=== PATIENT | female | born 1970 | race Caucasian/White ===

== ENCOUNTER → 2017-12-21 09:31 | Outpatient (POV) | payer MEDICARE, SELFPAY ==
[2017-12-21 09:50] VITALS: BP 171/72; PULSE 92; RESP 18; O2SAT 98
--- NOTE | 2017-12-21 10:42 | HMH.PMCON ---
Assessment and Plan (1) CRPS (complex regional pain syndrome) Current visit: Yes Status: Chronic Qualifiers: Complex regional pain syndrome type: type I Complex regional pain syndrome affected site: lower extremity Laterality: left Qualified Code(s): G90.522 - Complex regional pain syndrome I of left lower limb Category: Medical - Assessment and plan all Dx Assessment and Plan for all problems:: We will see the patient on gabapentin 100 mg nightly. I will follow-up with the patient in 1 month and reassess her at that time. I also gave her information on a neurostimulator. Patient's been instructed to call the office if she has any issues prior to her next appointment. This note was dictated using voice recognition software and may contain errors or omissions HPI - Data of Consult Consult date: 12/21/17 Requesting Physician: Parris Roth APRN Primary Care Provider: Amy Finch Family Provider: Facundo Espinoza MD - Consult Narrative Reason for consult: Right foot pain History of present illness: Ms. Gruber is a 47 year old female presents today for consultation in regards to her foot pain. Patient was born with a clubfoot at . Patient had surgery to correct this. She is also had bone lengthening surgery. Patient has contracted osteomyelitis and has had several toes amputated. Patient has an open ulcer on her foot. And rates her pain today a 5 out of 10. Patient states the pain is burning and sharp at times. Patient's tried and failed [place], tramadol, Motrin. CC: Parris Roth APRN [facility] History I have reviewed the patient's past medical history: Yes Medical History: Reports:: Hypertension Other Surgeries: Yes: Other (PART OF R FOOT AMPUTATED) Amputation: Yes Fractures: No - *Social History Smoking Status: Current every day smoker Tobacco Type: cigarettes Alcohol Intake: never Occupational Status: other Housing: house - Psychiatric History Expresses thoughts of harming self/others: None Suicide Plan Description: No Plan *Family Hx:: Unable to obtain Review of Systems - Review of Systems ROS General: no recent weight change, no fever, no sleep disturbances Respiratory: no cough, no shortness of air, no recurring pulmonary infections Cardiovascular/Peripheral Vascular: No chest pain, No palpitations, no edema, no shortness of breath. Gastrointestinal: no incontinence, normal bowel movements reported Genitourinary: no incontinence Musculoskeletal: Right foot pain Psychiatric: normal mood/ affect Neurological: [denies weakness in extremities], [denies balance issues] Objective Vital signs: Pulse Resp BP Pulse Ox 92 H 18 171/72 H 98 12/21/17 09:50 12/21/17 09:50 12/21/17 09:50 12/21/17 09:50 Narrative: Physical Exam General: Alert and oriented x3, no acute distress, pleasant and cooperative, [on room air] Lungs: Resps E/U, Symmetrical chest expansion, Eyes: PERRL Musculoskeletal: Age of motion right foot somewhat guarded secondary to pain, deep tendon reflexes normal, strength in upper and lower extremities [5/5], [abnormal gait noted] Neurological: speech clear, grouter helper equal, no gross sensory deficits Opioid Risk Tool - Opioid Risk Tool-Female Family hx alcohol abuse: N Family hx illegal drugs: N Family hx rx drug abuse: N Personal hx alcohol abuse: N Personal hx illegal drugs: N Personal hx rx drug abuse: N Age: 45+ Hx of sexual abuse: N Mental health issues-ADD,OCD,Bipolar, etc: N Hx of depression: Y Female Risk Score: 1
--- NOTE | 2017-12-21 10:51 | P.CONS_ITS ---
Assessment and Plan (1) CRPS (complex regional pain syndrome) Current visit: Yes Status: Chronic Qualifiers: Complex regional pain syndrome type: type I Complex regional pain syndrome affected site: lower extremity Laterality: left Qualified Code(s): G90.522 - Complex regional pain syndrome I of left lower limb Category: Medical - Assessment and plan all Dx Assessment and Plan for all problems:: We will see the patient on gabapentin 100 mg nightly. I will follow-up with the patient in 1 month and reassess her at that time. I also gave her information on a neurostimulator. Patient's been instructed to call the office if she has any issues prior to her next appointment. This note was dictated using voice recognition software and may contain errors or omissions HPI - Data of Consult Consult date: 12/21/17 Requesting Physician: Parris Roth APRN Primary Care Provider: Amy Finch Family Provider: Facundo Espinoza MD - Consult Narrative Reason for consult: Right foot pain History of present illness: Ms. Gruber is a 47 year old female presents today for consultation in regards to her foot pain. Patient was born with a clubfoot at . Patient had surgery to correct this. She is also had bone lengthening surgery. Patient has contracted osteomyelitis and has had several toes amputated. Patient has an open ulcer on her foot. And rates her pain today a 5 out of 10. Patient states the pain is burning and sharp at times. Patient's tried and failed [place], tramadol, Motrin. CC: Parris Roth APRN [facility] History I have reviewed the patient's past medical history: Yes Medical History: Reports:: Hypertension Other Surgeries: Yes: Other (PART OF R FOOT AMPUTATED) Amputation: Yes Fractures: No - *Social History Smoking Status: Current every day smoker Tobacco Type: cigarettes Alcohol Intake: never Occupational Status: other Housing: house - Psychiatric History Expresses thoughts of harming self/others: None Suicide Plan Description: No Plan *Family Hx:: Unable to obtain Review of Systems - Review of Systems ROS General: no recent weight change, no fever, no sleep disturbances Respiratory: no cough, no shortness of air, no recurring pulmonary infections Cardiovascular/Peripheral Vascular: No chest pain, No palpitations, no edema, no shortness of breath. Gastrointestinal: no incontinence, normal bowel movements reported Genitourinary: no incontinence Musculoskeletal: Right foot pain Psychiatric: normal mood/ affect Neurological: [denies weakness in extremities], [denies balance issues] Objective Vital signs: Pulse Resp BP Pulse Ox 92 H 18 171/72 H 98 12/21/17 09:50 12/21/17 09:50 12/21/17 09:50 12/21/17 09:50 Narrative: Physical Exam General: Alert and oriented x3, no acute distress, pleasant and cooperative, [on room air] Lungs: Resps E/U, Symmetrical chest expansion, Eyes: PERRL Musculoskeletal: Age of motion right foot somewhat guarded secondary to pain, deep tendon reflexes normal, strength in upper and lower extremities [5/5], [abnormal gait noted] Neurological: speech clear, garden consultant equal, no gross sensory deficits Opioid Risk Tool - Opioid Risk Tool-Female Family hx alcohol abuse: N Family hx illegal drugs: N Family hx rx drug abuse: N Personal hx alcohol abuse: N
== END ==
PROVIDERS: Family Provider Obstetrics & Gynecology; PCP Family Medicine; Visit Provider Clinical Nurse Specialist Family Health
DX: G90.522 Complex regional pain syndrome I of left lower limb (principal)
CPT/HCPCS: 99202

== ENCOUNTER → 2018-01-10 13:22 | Outpatient (POV) | payer MEDICARE, SELFPAY ==
[2018-01-10 13:59] VITALS: BP 148/90; PULSE 102; RESP 18; O2SAT 98; BMI 19.5
[2018-01-10 15:46] LABS: Amphetamine/Metha Screen,Urine Negative ng/mL (<1000); Barbiturates Screen,Urine Negative ng/mL (<200); Benzodiazepines Screen,Urine Negative ng/mL (<200); Cannabinoid Screen,Urine Negative ng/mL (<50); Cocaine Screen,Urine Negative ng/mL (<300); Methadone Screen,Urine Negative ng/mL (<300); Opiate Screen,Urine Negative ng/mL (<300); Phencyclidine Screen,Urine Negative ng/mL (<25)
--- NOTE | 2018-01-11 08:13 | HMH.PAINSOAP ---
[facility] Pain Management SOAP Note Subjective:: Patient is a pleasant 47-year-old white female who presents today for dilatation in regards to her foot pain. 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 Patient had multiple surgeries to correct this. She also had a bone lengthening surgery. Patient had contracted osteomyelitis at that time. She had had several toes amputated. Patient has an open ulcer on her foot that she has difficulty with healing. Patient rates her pain 5 out of 10. Patient states that it is burning and sharp at times. Patient has tried multiple modalities of treatment. ROS General: no recent weight change, no fever, no sleep disturbances Respiratory: no cough, no shortness of air, no recurring pulmonary infections Cardiovascular/Peripheral Vascular: No chest pain, No palpitations, no edema, no shortness of breath. Gastrointestinal: no incontinence, normal bowel movements reported Genitourinary: no incontinence Musculoskeletal: Foot pain Psychiatric: normal mood/ affect Neurological: [denies weakness in extremities], [denies balance issues] Objective:: Physical Exam General: Alert and oriented x3, no acute distress, pleasant and cooperative, [on room air] Lungs: Resps E/U, Symmetrical chest expansion, Eyes: PERRL Musculoskeletal: Range of motion right foot somewhat guarded secondary to pain, noted ulcer on right foot, deep tendon reflexes normal, strength in upper and lower extremities [5/5], [abnormal gait noted] Neurological: speech clear, tubing supervisor equal, no gross sensory deficits Assessment:: CRPS type I right foot Plan:: Patient did not have any relief with gabapentin. Patient has had an appropriate drug screen. We will start her on [place] and 1 p.o. 3 times daily. This will be only until we get her approved for a stimulator trial. Patient will have to be cleared by the physician taking care of her also that she is off antibiotics and able to have the trial. Patient is also going to follow-up after her psychological evaluation. Patient has been prescribed a controlled substance after being counseled on the medication, medication safety, and possible side effects. MO report has been obtained and reviewed prior to prescription and found to be appropriate. Opioid contract was reviewed and signed by the patient, and that they have agreed to all of the terms set forth by our compliance program. This note was dictated using voice recognition software and may contain errors or omissions
--- NOTE | 2018-01-11 08:16 | P.CONS_ITS ---
[facility] Pain Management SOAP Note Subjective:: Patient is a pleasant 47-year-old white female who presents today for dilatation in regards to her foot pain. 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 Patient had multiple surgeries to correct this. She also had a bone lengthening surgery. Patient had contracted osteomyelitis at that time. She had had several toes amputated. Patient has an open ulcer on her foot that she has difficulty with healing. Patient rates her pain 5 out of 10. Patient states that it is burning and sharp at times. Patient has tried multiple modalities of treatment. ROS General: no recent weight change, no fever, no sleep disturbances Respiratory: no cough, no shortness of air, no recurring pulmonary infections Cardiovascular/Peripheral Vascular: No chest pain, No palpitations, no edema, no shortness of breath. Gastrointestinal: no incontinence, normal bowel movements reported Genitourinary: no incontinence Musculoskeletal: Foot pain Psychiatric: normal mood/ affect Neurological: [denies weakness in extremities], [denies balance issues] Objective:: Physical Exam General: Alert and oriented x3, no acute distress, pleasant and cooperative, [on room air] Lungs: Resps E/U, Symmetrical chest expansion, Eyes: PERRL Musculoskeletal: Range of motion right foot somewhat guarded secondary to pain, noted ulcer on right foot, deep tendon reflexes normal, strength in upper and lower extremities [5/5], [abnormal gait noted] Neurological: speech clear, associate juvenile court judge equal, no gross sensory deficits Assessment:: CRPS type I right foot Plan:: Patient did not have any relief with gabapentin. Patient has had an appropriate drug screen. We will start her on [place] and 1 p.o. 3 times daily. This will be only until we get her approved for a stimulator trial. Patient will have to be cleared by the physician taking care of her also that she is off antibiotics and able to have the trial. Patient is also going to follow-up after her psychological evaluation. Patient has been prescribed a controlled substance after being counseled on the medication, medication safety, and possible side effects. MO report has been obtained and reviewed prior to prescription and found to be appropriate. Opioid contract was reviewed and signed by the patient, and that they have agreed to all of the terms set forth by our compliance program. This note was dictated using voice recognition software and may contain errors or omissions
== END ==
PROVIDERS: PCP Family Medicine; Visit Provider Clinical Nurse Specialist Family Health
DX: G90.521 Complex regional pain syndrome I of right lower limb (principal); Z79.899 Other long term (current) drug therapy
CPT/HCPCS: 80305; 99213

== ENCOUNTER → 2018-01-31 09:12 | Outpatient (POV) | payer MEDICARE, SELFPAY ==
[2018-01-31 09:23] VITALS: BP 155/94; PULSE 74; RESP 18; O2SAT 98
--- NOTE | 2018-01-31 09:38 | P.CONS_ITS ---
[facility] Pain Management SOAP Note Subjective:: Is a very pleasant 47-year-old white female who presents today for a follow-up after her psychological evaluation. 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 Patient has had multiple surgeries to correct this. She is also had bone lengthening surgery. Patient does have a nonhealing ulcer on her right foot. Patient does take antibiotics at times however at this time she is not on any antibiotics and does not have a current infection. Patient is not on any anticoagulant therapy. She rates her pain a 6 out of 10. Patient and I have discussed in length about spinal cord stimulation. I have also discussed this with Dr. Rae. Dr. Rae felt that they would be appropriate to move forward with this as long as she is off her antibiotics. We will put her on antibiotics during her trial. Patient psychological evaluation considers her a good candidate for an implantable spinal cord stimulator. Patient does have some depression however she is on the correct medicine for this. ROS General: no recent weight change, no fever, no sleep disturbances Respiratory: no cough, no shortness of air, no recurring pulmonary infections Cardiovascular/Peripheral Vascular: No chest pain, No palpitations, no edema, no shortness of breath. Gastrointestinal: no incontinence, normal bowel movements reported Genitourinary: no incontinence Musculoskeletal: Right foot and leg pain Psychiatric: normal mood/ affect Neurological: [denies weakness in extremities], [denies balance issues] Objective:: Physical Exam General: Alert and oriented x3, no acute distress, pleasant and cooperative, [on room air] Lungs: Resps E/U, Symmetrical chest expansion, Eyes: PERRL Musculoskeletal: Range of Motion of the right foot guarded secondary pain. Flexion and extension of lumbar spine somewhat guarded secondary to pain, deep tendon reflexes normal, strength in upper and lower extremities [5/5], [abnormal gait noted] Neurological: speech clear, mba intern equal, no gross sensory deficits Assessment:: CRPS type I right foot, leg pain, back pain. Plan:: Patient has not had relief with gabapentin. Patient has been off of her antibiotics and is able to move forward with her trial. We will plan on putting the leads for both back pain and her right leg and right foot pain. I will follow-up with her after her trial. I answered all of her questions. Patient is a good candidate according to her psychological evaluation. This note was dictated using voice recognition software and may contain errors or omissions
== END ==
PROVIDERS: PCP Family Medicine; Visit Provider Clinical Nurse Specialist Family Health
DX: G90.521 Complex regional pain syndrome I of right lower limb; M54.9 Dorsalgia, unspecified
CPT/HCPCS: 99213

== ENCOUNTER → 2018-02-08 09:24 | Outpatient (POV) | payer MEDICARE, SELFPAY ==
[2018-02-08 09:37] VITALS: BP 141/85; PULSE 89; RESP 18; O2SAT 98
--- NOTE | 2018-02-08 11:03 | P.PCN_ITS ---
- Procedure Date: 02/08/18 Time: 09:40 Anesthesiologist:: Parris Roth APRN Complications:: None Pre-procedure Diagnosis:: CRPS type I of the right lower extremity with degenerative disc disease lumbar spine lumbar radiculopathy symptoms Post-procedure Diagnosis:: Same Indications for Procedure:: Patient is a pleasant 47-year-old white female who presents today for follow-up and lead removal for her neurostimulator. She was born with clubfoot on the right side and has had multiple surgeries to correct this is including bone lengthening surgery. She is failed other conservative measures of therapy including injections, oral medications, physical therapy and surgery. Most of her pain is in her right foot with additional pain in her hips and right leg. Patient states she did not get any relief from the spinal cord stimulator trial. We will renew those leads today. She rates her pain a 9 out of 10 today. Physical Exam General: Alert and oriented x3, no acute distress, pleasant and cooperative, [on room air] Lungs: Resps E/U, Symmetrical chest expansion, Eyes: PERRL Musculoskeletal: Flexion and extension of lumbar spine somewhat guarded secondary to pain, deep tendon reflexes normal, strength in upper and lower extremities [5/5], [abnormal gait noted] Neurological: speech clear, electrical electronics engineers equal, no gross sensory deficits Procedure Details:: After informed consent was obtained the risk and benefits of the procedure were explained to the patient. Patient's vital signs were monitored with noninvasive blood pressure cuff and pulse oximeter. Patient's tape was removed on her back. The area in which her epidural leads entered was examined to ensure no redness or draining. Patient leads were then removed in sterile fashion. Patient then had Band-Aids placed over the puncture sites. Patient tolerated the procedure well. Plan and Disposition:: Patient and I had a lengthy discussion in regards to an intrathecal pain pump. Patient is on [place] 10 1 p.o. 3 times daily. Patient and I discussed that we would not be able to continue this medication. Patient states she understands. Patient took information in regards to a intrathecal pain pump and is going to review this. If she wants to move forward with this we will set her up for a trial. Patient was given 1 month of [place] 10 mg 1 p.o. 3 times daily. Patient's understands that this will be the last month of medication she receives from us. This note was dictated using voice recognition software and may contain errors or omissions
== END ==
PROVIDERS: PCP Family Medicine; Visit Provider Clinical Nurse Specialist Family Health
DX: M51.16 Intervertebral disc disorders with radiculopathy, lumbar region (principal); G90.521 Complex regional pain syndrome I of right lower limb
CPT/HCPCS: 99212

== ENCOUNTER → 2018-03-07 10:30 | Outpatient (POV) | payer MEDICARE, SELFPAY ==
[2018-03-07 11:09] VITALS: BP 135/94; PULSE 95; RESP 18; O2SAT 98; BMI 19.4
--- NOTE | 2018-03-07 11:51 | HMH.PAINSOAP ---
[facility] Pain Management SOAP Note Subjective:: Patient is a pleasant 47-year-old white female who presents today for follow-up. Patient has been thinking about intrathecal pain pump however due to recent life events I do not believe it is appropriate at this time. She also has an active infection. Patient is currently on [place] 10 mg 1 p.o. 3 times daily. She does state that this is beneficial. MO #[id number] reviewed and appropriate. ROS General: no recent weight change, no fever, no sleep disturbances Respiratory: no cough, no shortness of air, no recurring pulmonary infections Cardiovascular/Peripheral Vascular: No chest pain, No palpitations, no edema, no shortness of breath. Gastrointestinal: no incontinence, normal bowel movements reported Genitourinary: no incontinence Musculoskeletal: Foot pain Psychiatric: Tearful and anxious Neurological: [denies weakness in extremities], [denies balance issues] Objective:: Physical Exam General: Alert and oriented x3, no acute distress, pleasant and cooperative, [on room air] Lungs: Resps E/U, Symmetrical chest expansion, Eyes: PERRL Musculoskeletal: Flexion and extension right foot guarded secondary to pain, deep tendon reflexes normal, strength in upper and lower extremities [5/5], [abnormal gait noted] Neurological: speech clear, road gang supervisor equal, no gross sensory deficits Assessment:: CRPS type I right lower extremity with degenerative disc disease lumbar spine with lumbar radiculopathy Plan:: We will refill her [place] 10 mg 1 p.o. 3 times daily and see her back in 2 months and reassess her symptoms at that time. Patient has been prescribed a controlled substance after being counseled on the medication, medication safety, and possible side effects. MO report has been obtained and reviewed prior to prescription and found to be appropriate. Opioid contract was reviewed and signed by the patient, and that they have agreed to all of the terms set forth by our compliance program. This note was dictated using voice recognition software and may contain errors or omissions
--- NOTE | 2018-03-07 11:55 | P.CONS_ITS ---
[facility] Pain Management SOAP Note Subjective:: Patient is a pleasant 47-year-old white female who presents today for follow-up. Patient has been thinking about intrathecal pain pump however due to recent life events I do not believe it is appropriate at this time. She also has an active infection. Patient is currently on [place] 10 mg 1 p.o. 3 times daily. She does state that this is beneficial. MO #[id number] reviewed and appropriate. ROS General: no recent weight change, no fever, no sleep disturbances Respiratory: no cough, no shortness of air, no recurring pulmonary infections Cardiovascular/Peripheral Vascular: No chest pain, No palpitations, no edema, no shortness of breath. Gastrointestinal: no incontinence, normal bowel movements reported Genitourinary: no incontinence Musculoskeletal: Foot pain Psychiatric: Tearful and anxious Neurological: [denies weakness in extremities], [denies balance issues] Objective:: Physical Exam General: Alert and oriented x3, no acute distress, pleasant and cooperative, [on room air] Lungs: Resps E/U, Symmetrical chest expansion, Eyes: PERRL Musculoskeletal: Flexion and extension right foot guarded secondary to pain, deep tendon reflexes normal, strength in upper and lower extremities [5/5], [abnormal gait noted] Neurological: speech clear, feller machine operator equal, no gross sensory deficits Assessment:: CRPS type I right lower extremity with degenerative disc disease lumbar spine with lumbar radiculopathy Plan:: We will refill her [place] 10 mg 1 p.o. 3 times daily and see her back in 2 months and reassess her symptoms at that time. Patient has been prescribed a controlled substance after being counseled on the medication, medication safety, and possible side effects. MO report has been obtained and reviewed prior to prescription and found to be appropriate. Opioid contract was reviewed and signed by the patient, and that they have agreed to all of the terms set forth by our compliance program. This note was dictated using voice recognition software and may contain errors or omissions
== END ==
PROVIDERS: PCP Family Medicine; Visit Provider Clinical Nurse Specialist Family Health
DX: G90.521 Complex regional pain syndrome I of right lower limb (principal); M51.16 Intervertebral disc disorders with radiculopathy, lumbar region
CPT/HCPCS: 99213

== ENCOUNTER → 2018-05-02 10:41 | Outpatient (POV) | payer MEDICARE, SELFPAY ==
[2018-05-02 10:56] VITALS: BP 158/89; PULSE 94; RESP 18; O2SAT 98; BMI 18.8
--- NOTE | 2018-05-02 11:29 | HMH.PAINSOAP ---
[facility] Pain Management SOAP Note Subjective:: Patient is a pleasant 47-year-old white female who presents today for follow-up. Patient currently being medically managed with [place] 10 mg 1 p.o. 3 times a day. She suffers from chronic wounds on her right lower extremity. Patient has not seen a railroad car letterer recently. We will send her to Dr. Varner. She rates her pain today a 7 out of 10. Mo reviewed and appropriate. We will send the patient for urine drug screen today. ROS General: no recent weight change, no fever, no sleep disturbances Respiratory: no cough, no shortness of air, no recurring pulmonary infections Cardiovascular/Peripheral Vascular: No chest pain, No palpitations, no edema, no shortness of breath. Gastrointestinal: no incontinence, normal bowel movements reported Genitourinary: no incontinence Musculoskeletal: Right foot pain Psychiatric: normal mood/ affect Neurological: Weakness in right lower extremity, [denies balance issues] Objective:: Physical Exam General: Alert and oriented x3, no acute distress, pleasant and cooperative, [on room air] Lungs: Resps E/U, Symmetrical chest expansion, Eyes: PERRL Musculoskeletal: Range of motion right lower extremity somewhat guarded secondary to pain, deep tendon reflexes normal, strength in upper extremities [5/5], [abnormal gait noted] Neurological: speech clear, sales and merchandising associate equal, no gross sensory deficits Assessment:: 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 Varner for an evaluation of her right foot. We will also refill her [place] 10 mg 1 p.o. 3 times daily and give her 2 months worth of medication. We will send her for urine drug screen today. Patient denies side effects or medication. I will follow-up with the patient in 3 months and in the interim she can cook pickled meat a prescription if her urine drug screen is appropriate. Patient has been prescribed a controlled substance after being counseled on the medication, medication safety, and possible side effects. MO report has been obtained and reviewed prior to prescription and found to be appropriate. Opioid contract was reviewed and signed by the patient, and that they have agreed to all of the terms set forth by our compliance program. Dr. Rae has reviewed this note and agrees with this plan of care. This note was dictated using voice recognition software and may contain errors or omissions
--- NOTE | 2018-05-02 11:32 | P.CONS_ITS ---
[facility] Pain Management SOAP Note Subjective:: Patient is a pleasant 47-year-old white female who presents today for follow-up. Patient currently being medically managed with [place] 10 mg 1 p.o. 3 times a day. She suffers from chronic wounds on her right lower extremity. Patient has not seen a transfusion nurse recently. We will send her to Dr. Varner. She rates her pain today a 7 out of 10. Mo reviewed and appropriate. We will send the patient for urine drug screen today. ROS General: no recent weight change, no fever, no sleep disturbances Respiratory: no cough, no shortness of air, no recurring pulmonary infections Cardiovascular/Peripheral Vascular: No chest pain, No palpitations, no edema, no shortness of breath. Gastrointestinal: no incontinence, normal bowel movements reported Genitourinary: no incontinence Musculoskeletal: Right foot pain Psychiatric: normal mood/ affect Neurological: Weakness in right lower extremity, [denies balance issues] Objective:: Physical Exam General: Alert and oriented x3, no acute distress, pleasant and cooperative, [on room air] Lungs: Resps E/U, Symmetrical chest expansion, Eyes: PERRL Musculoskeletal: Range of motion right lower extremity somewhat guarded secondary to pain, deep tendon reflexes normal, strength in upper extremities [5/5], [abnormal gait noted] Neurological: speech clear, interlocking and signal mechanic equal, no gross sensory deficits Assessment:: 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 Varner for an evaluation of her right foot. We will also refill her Helotes 10 mg 1 p.o. 3 times daily and give her 2 months worth of medication. We will send her for urine drug screen today. Patient denies side effects or medication. I will follow-up with the patient in 3 months and in the interim she can machine operator hop picker a prescription if her urine drug screen is appropriate. Patient has been prescribed a controlled substance after being counseled on the medication, medication safety, and possible side effects. MO report has been obtained and reviewed prior to prescription and found to be appropriate. Opioid contract was reviewed and signed by the patient, and that they have agreed to all of the terms set forth by our compliance program. Dr. Rae has reviewed this note and agrees with this plan of care. This note was dictated using voice recognition software and may contain errors or omissions
[2018-05-02 14:08] LABS: Amphetamine/Metha Screen,Urine Negative ng/mL (<1000); Barbiturates Screen,Urine Negative ng/mL (<200); Benzodiazepines Screen,Urine Negative ng/mL (<200); Cannabinoid Screen,Urine Negative ng/mL (<50); Cocaine Screen,Urine Negative ng/mL (<300); Methadone Screen,Urine Negative ng/mL (<300); Opiate Screen,Urine Positive ng/mL (<300); Phencyclidine Screen,Urine Negative ng/mL (<25)
[2018-05-08 15:07] LABS: Codeine Negative (Cutoff=100); Hydrocodone Positive (.); Hydromorphone Positive (.); Morphine Negative (Cutoff=100)
[2018-05-09 13:24] LABS: Opiates Positive (.)
== END ==
PROVIDERS: PCP Family Medicine; Visit Provider Clinical Nurse Specialist Family Health
DX: Z79.899 Other long term (current) drug therapy (principal); G90.521 Complex regional pain syndrome I of right lower limb; M51.16 Intervertebral disc disorders with radiculopathy, lumbar region
CPT/HCPCS: 80305; 80361; 80365; 99213; G0480

== ENCOUNTER → 2018-05-12 10:57 | Outpatient (CLI) | payer MEDICARE, SELFPAY ==
--- NOTE | 2018-05-12 11:02 | XR_ITS ---
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 These appear to be multiple punched-out lucent area seen at the remaining bone towards the distal stump-compatible with the the s history of chronic osteomyelitis. Specifically note small punched out areas at distal margin cuboid on the oblique view of the foot with similar round lucent areas at the cuneiform bones, with irregular margin bone throughout this entire region at the distal stump. There appear to be an deep ulcer at the plantar aspect of foot, leading to the irregular bone here at distal stump described above.. Correlation clinically required. Also Curiously note what appears to be distal tuft of questionable great toe fragment (vs a dystrophic bone fragment). Make it unclear as to the pattern of amputation or severe erosive changes throughout the foot thus requires correlation.. RIGHT ANKLE There is diffuse demineralization at right foot and ankle. There is marked narrowing of the ankle joint [id number] appearance throughout. Possible, partial fusion at the subtalar joint. Fixation screw entering laterally and distal fibula metaphysis, and passing into the tibia providing fixation to the distal fibular next tibial articulation & distal interosseous joint. There is some multiple areas of minimal thin osseous bridgingdistal third of tibia and fibula at the interosseous ligament. . Only the Inferior margin of metallic plate mid tibia included reflecting more extensive ORIF of tibia proximal to this.. There are scattered small lucent areas elsewhere the distal tibia is seen on the lateral view either reflecting post surgical tracts or related to the other features.. Prior studies would be helpful to determine if these are long-standing. No prior studies here . Also note the regular cortex at the lateral aspect of distal fibula. IMPRESSION: 1. Right foot Amputation at the mid foot. There is a deep plantar ulcer at the stump-associated with irregular osseous margin at the osseous stump. Multiple erosive changes and osseous irregularity here reflect history of osteomyelitis/chronic osteomyelitis. 2. Right ankle. Markedly narrowed joint. ... Postsurgical changes lower leg-with Screw from previous fibular/tibial interosseous fixation. . 3..Note Irregular ill-defined appearing cortex along lateral margin of fibula shaft upper margin of ankle study. Consider right lower leg to further evaluate.- Currently cannot exclude active process in this area as well. However Could be reflection of old healed osteomyelitis or injury Outside prior films may be of benefit for comparison as well
--- NOTE | 2018-05-12 11:02 | XR_ITS ---
XR ankle wt bearing LT min 3V, XR foot wt bearing LT 3V Ordering Physician: Janet Varner DPM Patient Age: 47 years: Female HISTORY: Foot. Pain Right foot drainage chronic osteomyelitis at right foot.. Left foot pain TECHNIQUE: Left ankle: 3 view. Weightbearing Left foot: 3 view weightbearing COMPARISON :None ===== LEFT FOOT 3 view weightbearing . There is cortical thickening at the distal shaft of second metatarsal. This could reflect a old healed fracture or conceivably could reflect currently healing fracture or stress fracture if pain here currently.. The remainder the foot appears intact. The other metatarsals Metatarsal 1, 3 ,4 , 5 appear intact & otherwise unremarkable. The toes appear intact. Bones well mineralized on the left foot. No Erosive changes on the left foot. ===== LEFT ANKLE 3 views weightbearing . Left ankle appears intact. Ankle mortise well maintained joint space well maintained. Medial, lateral and posterior malleolus intact. Dome of talus intact. Subtalar region unremarkable on plain film. Calcaneus satisfactory --------IMPRESSION: LEFT FOOT-Cortical thickening at distal shaft second metatarsal-suggestive of healed fracture, or possibly healing fracture. Correlation required. LEFT ANKLE:- Negative. Intact. & Unremarkable.
== END ==
PROVIDERS: PCP Family Medicine; Visit Provider Podiatrist
DX: Z51.89 Encounter for other specified aftercare (principal)
CPT/HCPCS: 73610; 73630

== ENCOUNTER → 2018-07-25 10:14 | Outpatient (POV) | payer MEDICARE, SELFPAY ==
[2018-07-25 10:29] VITALS: BP 170/82; PULSE 76; RESP 18; O2SAT 98; BMI 19.5
--- NOTE | 2018-07-25 10:42 | HMH.PAINSOAP ---
[facility] Pain Management SOAP Note Subjective:: Patient is a pleasant 47-year-old white female who presents today for follow-up. She currently rates her pain a 3 out of 10. She is being medically managed with [place] 10 mg 1 p.o. 3 times daily. She suffers from chronic wounds on her right lower extremity. 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 Patient states her medication helps her up to 80%. She is walking without a crutch today. Urine drug screens have been appropriate Mo reviewed and appropriate. Patient states she does have some dental work coming up. Patient will have the dentist contact our office. ROS General: no recent weight change, no fever, no sleep disturbances Respiratory: no cough, no shortness of air, no recurring pulmonary infections Cardiovascular/Peripheral Vascular: No chest pain, No palpitations, no edema, no shortness of breath. Gastrointestinal: no incontinence, normal bowel movements reported Genitourinary: no incontinence Musculoskeletal: Right foot pain Psychiatric: normal mood/ affect Neurological: [denies weakness in extremities], [denies balance issues] Objective:: Physical Exam General: Alert and oriented x3, no acute distress, pleasant and cooperative, [on room air] Lungs: Resps E/U, Symmetrical chest expansion, Eyes: PERRL Musculoskeletal: Range of motion right lower extremity somewhat guarded secondary to pain, deep tendon reflexes normal, strength in upper and lower extremities [5/5], [abnormal gait noted] Neurological: speech clear, curer acid drum equal, no gross sensory deficits Assessment:: 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 3 times daily give her 2 months with medication we will send her for urine drug screen today. Should be withheld for her to help monitor compliance.Follow-up with her in 3 months reassess her symptoms at that time she will be given a 3-month roller picker prescription in the interim. Patient has been prescribed a controlled substance after being counseled on the medication, medication safety, and possible side effects. MO report has been obtained and reviewed prior to prescription and found to be appropriate. Opioid contract was reviewed and signed by the patient, and that they have agreed to all of the terms set forth by our compliance program. Dr. Rae has reviewed this note and agrees with this plan of care. This note was dictated using voice recognition software and may contain errors or omissions
--- NOTE | 2018-07-25 10:45 | P.CONS_ITS ---
[facility] Pain Management SOAP Note Subjective:: Patient is a pleasant 47-year-old white female who presents today for follow-up. She currently rates her pain a 3 out of 10. She is being medically managed with [place] 10 mg 1 p.o. 3 times daily. She suffers from chronic wounds on her right lower extremity. 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 Patient states her medication helps her up to 80%. She is walking without a crutch today. Urine drug screens have been appropriate Mo reviewed and appropriate. Patient states she does have some dental work coming up. Patient will have the dentist contact our office. ROS General: no recent weight change, no fever, no sleep disturbances Respiratory: no cough, no shortness of air, no recurring pulmonary infections Cardiovascular/Peripheral Vascular: No chest pain, No palpitations, no edema, no shortness of breath. Gastrointestinal: no incontinence, normal bowel movements reported Genitourinary: no incontinence Musculoskeletal: Right foot pain Psychiatric: normal mood/ affect Neurological: [denies weakness in extremities], [denies balance issues] Objective:: Physical Exam General: Alert and oriented x3, no acute distress, pleasant and cooperative, [on room air] Lungs: Resps E/U, Symmetrical chest expansion, Eyes: PERRL Musculoskeletal: Range of motion right lower extremity somewhat guarded secondary to pain, deep tendon reflexes normal, strength in upper and lower extremities [5/5], [abnormal gait noted] Neurological: speech clear, tank assembler equal, no gross sensory deficits Assessment:: 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 3 times daily give her 2 months with medication we will send her for urine drug screen today. Should be withheld for her to help monitor compliance.Follow-up with her in 3 months reassess her symptoms at that time she will be given a 3-month cherry picker operator prescription in the interim. Patient has been prescribed a controlled substance after being counseled on the medication, medication safety, and possible side effects. MO report has been obtained and reviewed prior to prescription and found to be appropriate. Opioid contract was reviewed and signed by the patient, and that they have agreed to all of the terms set forth by our compliance program. Dr. Rae has reviewed this note and agrees with this plan of care. This note was dictated using voice recognition software and may contain errors or omissions
[2018-07-25 18:12] LABS: Amphetamine/Metha Screen,Urine Negative ng/mL (<1000); Barbiturates Screen,Urine Negative ng/mL (<200); Benzodiazepines Screen,Urine Negative ng/mL (<200); Cannabinoid Screen,Urine Negative ng/mL (<50); Cocaine Screen,Urine Negative ng/mL (<300); Methadone Screen,Urine Negative ng/mL (<300); Opiate Screen,Urine Positive ng/mL (<300); Phencyclidine Screen,Urine Negative ng/mL (<25)
[2018-07-31 14:09] LABS: Codeine Negative (Cutoff=100); Hydrocodone Positive (.); Hydromorphone Positive (.); Morphine Negative (Cutoff=100)
[2018-07-31 17:25] LABS: Opiates Positive (.)
== END ==
PROVIDERS: PCP Family Medicine; Visit Provider Clinical Nurse Specialist Family Health
DX: M51.16 Intervertebral disc disorders with radiculopathy, lumbar region (principal); Z79.899 Other long term (current) drug therapy
CPT/HCPCS: 80305; 80361; 80365; 99212; G0480

== ENCOUNTER → 2018-09-13 11:03 | Outpatient (POV) | payer MEDICARE, SELFPAY ==
[2018-09-13 11:51] VITALS: BP 149/49; PULSE 74; RESP 18; O2SAT 98; BMI 18.4
--- NOTE | 2018-09-13 13:15 | HMH.PAINSOAP ---
[facility] Pain Management SOAP Note Subjective:: Patient is a 47-year-old white female who presents today for complaints of pain to her right leg radiating into her right foot. 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 Patient says that she started to have right hip and right buttock pain radiating into her right leg a couple of weeks ago. The patient went to see her primary care provider who gave her a right SI joint injection for which she reports she did get relief to her right buttock and right hip, with 80% relief. Since then, however, she has started having pain behind her right knee into her foot. The patient says that she has a pocket of skin on her foot that she cut off herself and is currently being treated for infection to that area. She feels that this may also be contributing to her pain. She says that her pain medication that she is currently taking is no longer effective. She rates her pain a 7 out of 10 today. Patient is currently taking [place] 10 mg 1 p.o. 3 times daily. Patient states I want something stronger because [place] is no longer working for me . Review of Systems General: No recent weight changes, no fever, no sleep disturbances Respiratory: No cough, no shortness of air, no recurring pulmonary infections Cardiovascular/peripheral vascular: No chest pain, no palpitations, no edema, no shortness of breath Gastrointestinal: No new onset incontinence, normal bowel movements reported Genitourinary: No new onset incontinence Musculoskeletal: Right leg pain Psychiatric: Normal mood/affect Neurological: [Denies weakness in extremities], [denies balance issues] Objective:: Physical exam General: Alert and oriented x3, no acute distress, pleasant and cooperative, [on room air] Lungs: Respirations even and unlabored, symmetrical chest expansion Eyes: PERRL Musculoskeletal: Flexion and extension of right leg somewhat guarded secondary to pain, deep tendon reflexes normal, strength in upper and lower extremities [5/5], [abnormal gait noted] Neurological: Speech clear, net software engineer equal, no gross sensory deficit Assessment:: 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 She is not interested in any type of injective therapy. The patient also says that she tried a spinal cord stimulator trial in the past and did not get relief. We had a thorough discussion that we will be unable to increase her oral medication regimen at this time. We did discuss the option of other medications that were not opiates, for which she is not interested at this point. Patient says I am going to have to have stronger medicine . We did discuss that we have limited options at this point, as she is not interested in any further treatments that we can offer. The patient would like to continue her [place] 10 mg 1 p.o. 3 times daily. Her Prakash has been reviewed and is appropriate. We will see the patient back for her scheduled medication refill appointment. She has been instructed to call the office if she has any concerns prior to that appointment, or if she changes her mind regarding other treatment options. Dr. Rae has reviewed this note and agrees with this plan of care. This note was dictated using voice recognition software and make contain errors or omissions.
== END ==
PROVIDERS: PCP Family Medicine; Visit Provider Clinical Nurse Specialist Family Health
DX: M46.1 Sacroiliitis, not elsewhere classified (principal); M70.61 Trochanteric bursitis, right hip; G90.521 Complex regional pain syndrome I of right lower limb; M51.16 Intervertebral disc disorders with radiculopathy, lumbar region
CPT/HCPCS: 99212

== ENCOUNTER → 2018-10-25 08:24 | Outpatient (POV) | payer MEDICARE, SELFPAY ==
--- NOTE | 2018-10-25 09:47 | HMH.PAINSOAP ---
[facility] Pain Management SOAP Note Subjective:: Patient is a pleasant 48-year-old white female who presents today for medication refills. 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 Patient had a bout of sciatica. Patient states that she does not remember speaking about injections with the nurse practitioner at the time however it is documented that they did discuss this. Patient is currently on [place] 10 mg 1 p.o. 3 times daily. Patient's MO reviewed and appropriate. Patient states that her pain has gotten much better she rates it a 6 out of 10 today which is her baseline. ROS General: no recent weight change, no fever, no sleep disturbances Respiratory: no cough, no shortness of air, no recurring pulmonary infections Cardiovascular/Peripheral Vascular: No chest pain, No palpitations, no edema, no shortness of breath. Gastrointestinal: no incontinence, normal bowel movements reported Genitourinary: no incontinence Musculoskeletal: Right foot pain Psychiatric: normal mood/ affect, Neurological: [denies weakness in extremities], [denies balance issues] Objective:: Physical Exam General: Alert and oriented x3, no acute distress, pleasant and cooperative, [on room air] Lungs: Resps E/U, Symmetrical chest expansion, Eyes: PERRL Musculoskeletal: Flexion and extension of lumbar spine somewhat guarded secondary to pain, deep tendon reflexes normal, strength in upper and lower extremities [5/5], [abnormal gait noted] Neurological: speech clear, certified solid waste facility operator equal, no gross sensory deficits Assessment:: Degenerative disc disease lumbar spine with lumbar radiculopathy, CRPS type I right lower extremity, sacroiliitis Plan:: We will refill the patient's [place] 10 mg 1 p.o. 3 times daily give her 2 months worth of medication we will see her back in 3 months reassess her symptoms at that time she is been instructed to call the office if she has any issues prior to her next appointment. Patient has been prescribed a controlled substance after being counseled on the medication, medication safety, and possible side effects. MO report has been obtained and reviewed prior to prescription and found to be appropriate. Opioid contract was reviewed and signed by the patient, and that they have agreed to all of the terms set forth by our compliance program. Dr. Rae has reviewed this note and agrees with this plan of care. This note was dictated using voice recognition software and may contain errors or omissions Pain Management Hx Components *Have you ever received a pneumonia vaccine?: No *Have you received a flu vaccine this season?: No - *Social History *Occupational Status:: other *Travel in the last 8 weeks: None
[2018-10-25 09:49] VITALS: BP 186/94; PULSE 75; RESP 18; O2SAT 99; BMI 18.4
--- NOTE | 2018-12-02 09:55 | PC.NURSE ---
PT'S DENTAL OFFICE CALLED REQUESTING PERMISSION FOR PT TO DISCONTINUE NORCO AND HAVE NEW PRESCRIPTION FOR PERCOCET FOLLOWING DENTAL SURGERY. PERMISSION GIVEN PER PROVIDER
== END ==
PROVIDERS: PCP Family Medicine; Visit Provider Clinical Nurse Specialist Family Health
DX: M51.16 Intervertebral disc disorders with radiculopathy, lumbar region (principal); G90.521 Complex regional pain syndrome I of right lower limb; M46.1 Sacroiliitis, not elsewhere classified
CPT/HCPCS: 99212

== ENCOUNTER → 2018-10-25 08:40 | Outpatient (CLI) | payer MEDICARE, SELFPAY ==
--- NOTE | 2018-10-25 08:45 | XR_ITS ---
PROCEDURE: XR FOOT WT BEARING RT 3V CLINICAL INDICATION: pain COMPARISON: [id number] XR foot wt bearing RT 3V from 05/12/2018 XR ANKLE WT BEARING RT MIN 3V from 10/25/2018 FINDINGS: No change status post midfoot amputation with diffuse osteopenia and status post ORIF of the tib fib. Osteoarthritic changes are present at the ankle joint. There is some ill definition of the bony margin at the amputation site as well as some decreased attenuation within the medial cuneiform. Soft tissue defect is present in stump of the amputation site. IMPRESSION: Status post prior midfoot amputation. There is some bony all definition at the amputation site as noted on the oblique view as well as some slight decreased attenuation involving the cuboid and the medial cuneiform. Osteomyelitis is considered. Please correlate with clinical findings. Dictated by: Dhaval Roth MD 10/25/2018 15:22 Signed by: <Electronically signed by Dhaval Roth MD in [place]> 10/25/2018 15:22
--- NOTE | 2018-10-25 08:45 | XR_ITS ---
PROCEDURE: XR ANKLE WT BEARING RT MIN 3V CLINICAL INDICATION: pain Osteomyelitis, injury with pain COMPARISON: [id number] XR ankle wt bearing RT min 3V from 05/12/2018 FINDINGS: There is generalized osteopenia. There is a transverse screw extending from the lateral aspect of the distal fibula into the tibia which is not significantly changed. A bone plate is present along the mid to distal aspect of the tibia. Osteoarthritic changes are present at the ankle joint with diffuse osteopenia. A true lateral view is not obtained. There has been amputation at the midfoot region. IMPRESSION: Overall no significant change in the prior ORIF of the distal tib fib and amputation of the midfoot with osteoarthritic changes of the ankle Dictated by: Dhaval Roth MD 10/25/2018 14:54 Signed by: <Electronically signed by Dhaavl Roth MD in [place]> 10/25/2018 14:54
== END ==
PROVIDERS: PCP Family Medicine; Visit Provider Podiatrist
DX: M25.571 Pain in right ankle and joints of right foot (principal)
CPT/HCPCS: 73610; 73630; 99212

== ENCOUNTER → 2019-01-03 08:25 | Outpatient (CLI) | payer MEDICARE, SELFPAY ==
[2019-01-03 11:48] LABS: Amphetamine/Metha Screen,Urine Negative ng/mL (<1000); Barbiturates Screen,Urine Negative ng/mL (<200); Benzodiazepines Screen,Urine Negative ng/mL (<200); Cannabinoid Screen,Urine Negative ng/mL (<50); Cocaine Screen,Urine Negative ng/mL (<300); Methadone Screen,Urine Negative ng/mL (<300); Opiate Screen,Urine Negative ng/mL (<300); Phencyclidine Screen,Urine Negative ng/mL (<25)
[2019-01-07 18:47] LABS: Opiates Negative (Cutoff=100)
== END ==
PROVIDERS: Visit Provider Clinical Nurse Specialist Family Health
DX: Z79.899 Other long term (current) drug therapy (principal)
CPT/HCPCS: 80305; 80361; 80365; G0480

== ENCOUNTER → 2019-01-23 10:29 | Outpatient (POV) | payer MEDICARE, SELFPAY ==
[2019-01-23 10:48] VITALS: BP 185/89; PULSE 75; RESP 18; O2SAT 99; BMI 18.2
--- NOTE | 2019-01-23 12:45 | HMH.PAINSOAP ---
[facility] Pain Management SOAP Note Subjective:: Patient is a very pleasant 48-year-old white female who presents today for follow-up and medication refills along with discussion in regards to potential intrathecal pain pump trial. 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 Patient rates her pain today a 7 out of 10. Patient states it is continual mostly in her right leg however it does radiate into her knee and her back. Patient is currently on [place] 10 mg 1 p.o. 3 times daily. [facility] #[id number] reviewed and appropriate. Urine drug screens have been appropriate. Patient has tried and failed a neurostimulator trial. At this time we discussed intrathecal pain pump options. She is interested in this she understands that she has to be off of her [place] prior to her trial along with after her implant. Patient has had multiple surgeries to her right foot. She has numbness tingling swelling color changes. ROS General: no recent weight change, no fever, no sleep disturbances Respiratory: no cough, no shortness of air, no recurring pulmonary infections Cardiovascular/Peripheral Vascular: No chest pain, No palpitations, no edema, no shortness of breath. Gastrointestinal: no new onset incontinence, normal bowel movements reported Genitourinary: no new onset incontinence Musculoskeletal: Right foot pain, back pain, leg pain Psychiatric: normal mood/ affect Neurological: [denies new onset weakness in extremities], [denies new onset balance issues] Objective:: Physical Exam General: Alert and oriented x3, no acute distress, pleasant and cooperative, [on room air] Lungs: Resps E/U, Symmetrical chest expansion, Eyes: PERRL Musculoskeletal: Flexion and extension of lumbar spine somewhat guarded secondary to pain, deep tendon reflexes normal, strength in upper and lower extremities [5/5], [abnormal gait noted] Neurological: speech clear, paint coating machine operator equal, no gross sensory deficits Assessment:: Degenerative disc disease lumbar spine with lumbar radiculopathy, CRPS type I right lower extremity, sacroiliitis Plan:: We will refill the patient's [place] 10 mg 1 p.o. 3 times daily give her 2 months with medication see her back in preparation for a intrathecal pain pump trial. Again she understands she has to be off of her [place] 48 hours prior. Patient has had a psychological evaluation for a neurostimulator. We will contact the psychologist to see if patient needs to repeat this for intrathecal pain pump. We will follow-up with the patient and reassess her symptoms. Patient has been prescribed a controlled substance after being counseled on the medication, medication safety, and possible side effects. MO report has been obtained and reviewed prior to prescription and found to be appropriate. Opioid contract was reviewed and signed by the patient, and that they have agreed to all of the terms set forth by our compliance program. Dr. Rae has reviewed this note and agrees with this plan of care. This note was dictated using voice recognition software and may contain errors or omissions [facility] History I have reviewed the patient's past medical history: Yes Medical History: Reports:: Hypertension Denies:: Cancer, Diabetes Mellitus Type 1, Diabetes Mellitus Type 2, Internal Pacemaker, MRSA, Seizures *Have you ever received a pneumonia vaccine?: Yes *Have you received a flu vaccine this season?: Yes Other Medical History: Reports: Other (osteomyelitis). Denies: Blood Transfusion Reaction Other Surgeries: Yes: , Other. No: Pacemaker Amputation: Yes Fractures: No - *Social History Smoking Status: Current every day smoker Tobacco Type: cigarettes Alcohol Intake: never Alcohol Intake Frequency:: holidays/special occasions only Substance Use Type: denies use *Occupational Stat
--- NOTE | 2019-01-23 12:49 | P.CONS_ITS ---
[facility] Pain Management SOAP Note Subjective:: Patient is a very pleasant 48-year-old white female who presents today for follow-up and medication refills along with discussion in regards to potential intrathecal pain pump trial. 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 Patient rates her pain today a 7 out of 10. Patient states it is continual mostly in her right leg however it does radiate into her knee and her back. Patient is currently on [place] 10 mg 1 p.o. 3 times daily. [facility] #[id number] reviewed and appropriate. Urine drug screens have been appropriate. Patient has tried and failed a neurostimulator trial. At this time we discussed intrathecal pain pump options. She is interested in this she understands that she has to be off of her [place] prior to her trial along with after her implant. Patient has had multiple surgeries to her right foot. She has numbness tingling swelling color changes. ROS General: no recent weight change, no fever, no sleep disturbances Respiratory: no cough, no shortness of air, no recurring pulmonary infections Cardiovascular/Peripheral Vascular: No chest pain, No palpitations, no edema, no shortness of breath. Gastrointestinal: no new onset incontinence, normal bowel movements reported Genitourinary: no new onset incontinence Musculoskeletal: Right foot pain, back pain, leg pain Psychiatric: normal mood/ affect Neurological: [denies new onset weakness in extremities], [denies new onset balance issues] Objective:: Physical Exam General: Alert and oriented x3, no acute distress, pleasant and cooperative, [on room air] Lungs: Resps E/U, Symmetrical chest expansion, Eyes: PERRL Musculoskeletal: Flexion and extension of lumbar spine somewhat guarded secondary to pain, deep tendon reflexes normal, strength in upper and lower extremities [5/5], [abnormal gait noted] Neurological: speech clear, government operations consultant equal, no gross sensory deficits Assessment:: Degenerative disc disease lumbar spine with lumbar radiculopathy, CRPS type I right lower extremity, sacroiliitis Plan:: We will refill the patient's [place] 10 mg 1 p.o. 3 times daily give her 2 months with medication see her back in preparation for a intrathecal pain pump trial. Again she understands she has to be off of her [place] 48 hours prior. Patient has had a psychological evaluation for a neurostimulator. We will contact the psychologist to see if patient needs to repeat this for intrathecal pain pump. We will follow-up with the patient and reassess her symptoms. Patient has been prescribed a controlled substance after being counseled on the medication, medication safety, and possible side effects. MO report has been obtained and reviewed prior to prescription and found to be appropriate. Opioid contract was reviewed and signed by the patient, and that they have agreed to all of the terms set forth by our compliance program. Dr. Rae has reviewed this note and agrees with this plan of care. This note was dictated using voice recognition software and may contain errors or omissions [facility] History I have reviewed the patient's past medical history: Yes Medical History: Reports:: Hypertension Denies:: Cancer, Diabetes Mellitus Type 1, Diabetes Mellitus Type 2, Internal Pacemaker, MRSA, Seizures *Have you ever received a pneumonia vaccine?: Yes *Have you received a flu vaccine this season?: Yes Other Medical History: Reports: Other (osteomyelitis). Denies: Blood Transfusi
== END ==
PROVIDERS: PCP Family Medicine; Visit Provider Clinical Nurse Specialist Family Health
DX: M51.16 Intervertebral disc disorders with radiculopathy, lumbar region (principal); M46.1 Sacroiliitis, not elsewhere classified; G90.521 Complex regional pain syndrome I of right lower limb
CPT/HCPCS: 99212

== ENCOUNTER → 2019-03-28 12:07 | Outpatient (CLI) | payer MEDICARE, SELFPAY ==
[2019-03-28 18:42] LABS: Amphetamine/Metha Screen,Urine Negative ng/mL (<1000); Barbiturates Screen,Urine Positive ng/mL (<200); Benzodiazepines Screen,Urine Negative ng/mL (<200); Cannabinoid Screen,Urine Negative ng/mL (<50); Cocaine Screen,Urine Negative ng/mL (<300); Methadone Screen,Urine Negative ng/mL (<300); Opiate Screen,Urine Positive ng/mL (<300); Phencyclidine Screen,Urine Negative ng/mL (<25)
[2019-04-02 14:22] LABS: Codeine Negative (Cutoff=100); Hydrocodone Positive (.); Hydromorphone Positive (.); Morphine Negative (Cutoff=100)
[2019-04-02 17:07] LABS: Opiates Positive (.)
== END ==
PROVIDERS: Visit Provider Clinical Nurse Specialist Family Health
DX: Z79.899 Other long term (current) drug therapy (principal)
CPT/HCPCS: 80305; 80361; 80365; G0480

== ENCOUNTER → 2019-04-24 10:37 | Outpatient (POV) | payer MEDICARE, SELFPAY ==
[2019-04-24 11:15] VITALS: BP 150/93; PULSE 83; RESP 18; O2SAT 99; BMI 18.8
--- NOTE | 2019-04-24 11:42 | HMH.PAINSOAP ---
[facility] Pain Management SOAP Note Subjective:: Patient is a 48-year-old white female who presents today for follow-up and medication refills. She is being treated for degenerative disc disease lumbar spine with lumbar radiculopathy symptoms, as well as CRPS type I of her right lower extremity. Patient rates her pain a 7 out of 10 today. She is currently managed with [place] 10 mg 1 tablet p.o. 3 times daily. She denies any side effects to her medications. Her Prakash #[id number] has been reviewed and is appropriate. Her urine drug screens have been appropriate. Morphine equivalent is 30. Review of Systems General: No recent weight changes, no fever, no sleep disturbances Respiratory: No cough, no shortness of air, no recurring pulmonary infections Cardiovascular/peripheral vascular: No chest pain, no palpitations, no edema, no shortness of breath Gastrointestinal: No new onset incontinence, normal bowel movements reported Genitourinary: No new onset incontinence Musculoskeletal: Low back pain, right leg pain Psychiatric: Normal mood/affect Neurological: [Denies weakness in extremities], [denies balance issues] Objective:: Physical exam General: Alert and oriented x3, no acute distress, pleasant and cooperative, [on room air] Lungs: Respirations even and unlabored, symmetrical chest expansion Eyes: PERRL Musculoskeletal: Flexion and extension of lumbar spine somewhat guarded secondary to pain, deep tendon reflexes normal, strength in upper and lower extremities [5/5], [abnormal gait noted] Neurological: Speech clear, air brake mechanic equal, no gross sensory deficit Assessment:: Degenerative disc disease lumbar spine with lumbar radiculopathy, CRPS type I right lower extremity Plan:: We will refill the patient's [place] 10 mg 1 tablet p.o. 3 times daily. We will give HER-2 months worth of medication and she can pickler helper her third month in the interim. We will see her back in the clinic in 3 months to reassess her symptoms. Patient has been instructed to contact clinic if she has any concerns before the next appointment. Dr. Rae has reviewed this note and agrees with this plan of care. This note was dictated using voice recognition software and make contain errors or omissions. [facility] History I have reviewed the patient's past medical history: Yes Medical History: Reports:: Hypertension Denies:: Cancer, Diabetes Mellitus Type 1, Diabetes Mellitus Type 2, Internal Pacemaker, MRSA, Seizures *Have you ever received a pneumonia vaccine?: Yes *Have you received a flu vaccine this season?: Yes Other Medical History: Reports: Other (osteomyelitis). Denies: Blood Transfusion Reaction Other Surgeries: Yes: , Other. No: Pacemaker Amputation: Yes Fractures: No - *Social History Smoking Status: Current every day smoker Tobacco Type: cigarettes Alcohol Intake: never Alcohol Intake Frequency:: holidays/special occasions only Substance Use Type: denies use *Occupational Status:: other Housing: house Household Members: spouse *Travel in the last 8 weeks: None Family Hx:: Cancer, Diabetes
== END ==
PROVIDERS: PCP Family Medicine; Visit Provider Clinical Nurse Specialist Family Health
DX: M51.16 Intervertebral disc disorders with radiculopathy, lumbar region (principal); G90.521 Complex regional pain syndrome I of right lower limb; Z76.0 Encounter for issue of repeat prescription
CPT/HCPCS: 99212

== ENCOUNTER → 2019-07-17 13:00 | Outpatient (POV) | payer MEDICARE, SELFPAY ==
--- NOTE | 2019-07-18 08:17 | HMH.VVPMSO ---
[facility] PM Virtual Visit SOAP Consent for virtual visit:: With the recent concerns about the COVID-19, we are trying to minimize exposure to you by shifting to telehealth appointments whenever possible. It restricts me from seeing you in person, but the trade off is protecting you during this pandemic. Can you see and hear me okay, and do you consent to this option? If not, I would be happy to see if we can reschedule your appointment in the future, when feasible. 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 She is being also treated for degenerative disc disease lumbar spine with lumbar radiculopathy. She rates her pain today a 6 out of 10 which is her baseline. She is currently managed with [place] 10 mg 1 p.o. 3 times daily. Her previous urine drug screens have been appropriate. Mo #[id number] reviewed and appropriate. Her morphine equivalent is 30. ROS General: no recent weight change, no fever, no sleep disturbances Respiratory: no cough, no shortness of air, no recurring pulmonary infections Cardiovascular/Peripheral Vascular: No chest pain, No palpitations, no edema, no shortness of breath. Gastrointestinal: no new onset incontinence, normal bowel movements reported Genitourinary: no new onset incontinence Musculoskeletal: Low back pain, right leg pain Psychiatric: normal mood/ affect Neurological: [denies new onset weakness in extremities], [denies new onset balance issues] Objective:: Physical exam: Constitutional: Healthy appearing, well-developed, alert, in no acute distress Psychiatric: Judgment and insight intact, Alert and oriented x4 Mood and affect: Mood normal, affect appropriate Head and face: Inspection: Normocephalic atraumatic, extraocular movement intact Respiratory: Breathing nonlabored, nondyspneic Cardiovascular: No cyanosis, clubbing, or edema observed Skin: Head and neck: Skin with no lesions or rash observed Gait: Able to walk without assistive device: Able to heel and toe walk Neurologic: Sensation grossly intact per patient Musculoskeletal: Decreased range of motion lumbar spine and right leg Assessment:: CRPS type I right lower extremity and degenerative disc disease lumbar spine with lumbar radiculopathy Plan:: We will refill her [place] 10 mg 1 tab p.o. 3 times daily and give her 2 months worth medication she can pecan picker 1/3-month in the interim. We will see her back in 3 months reassess her symptoms at that time she has been instructed to call our office if she has any issues prior to her next appointment. This encounter was performed as a telemedicine visit via secure 2 way video and audio to minimize risk and transmission of Covid-19. The patient and we understand the limitations of a telemedicine visit including inability to check reflexes, possibly missing subtle findings on physical exam. Alternative options were presented to the patient and the patient elected to proceed with the visit. We specifically discussed risk factors for Covid-19 including age, heart or lung disease, diabetes, immunosuppression and travel. We also discussed that NSAIDs may worsen Covid-19 infection symptoms and that they should not be used to treat Covid-19 symptoms. Patient was also informed that corticosteroids in any form oral or injectable will decrease immune response and may increase risk of Covid-[address] Rae has reviewed this patient's chart and this note and agrees with plan of care. Patient has been instructed to call the office if they have any issues prior to the next appointment. Patient has been prescribed a controlled substance after being counseled on the medication, medication safety, and possible side effects. MO report has been obtained and reviewed prior to prescription and found to be appropriate. Opioid contract was reviewed and signed by jade
== END ==
PROVIDERS: Visit Provider Clinical Nurse Specialist Family Health
DX: M51.16 Intervertebral disc disorders with radiculopathy, lumbar region (principal); G90.521 Complex regional pain syndrome I of right lower limb
CPT/HCPCS: 99212

== ENCOUNTER → 2019-10-16 13:09 | Outpatient (POV) | payer MEDICARE, SELFPAY ==
[2019-10-16 13:25] VITALS: BP 120/77; PULSE 66; RESP 18; TEMP 36.8; O2SAT 99; BMI 16.6
--- NOTE | 2019-11-02 09:00 | HMH.PAINSOAP ---
[facility] Pain Management SOAP Note Subjective:: Patient is a pleasant 49-year-old white female who presents today for follow-up. She is being treated for CRPS type I of her right lower extremity. She is also being treated for degenerative disc disease lumbar spine with lumbar radiculopathy. She rates her pain today a 6 out of 10 which is her baseline she is currently managed with [place] 10 mg 1 p.o. 3 times daily. Urine drug screens have been appropriate. Patient denies side effects from medication her morphine equivalent is 30. ROS General: no recent weight change, no fever, no sleep disturbances Respiratory: no cough, no shortness of air, no recurring pulmonary infections Cardiovascular/Peripheral Vascular: No chest pain, No palpitations, no edema, no shortness of breath. Gastrointestinal: no new onset incontinence, normal bowel movements reported Genitourinary: no new onset incontinence Musculoskeletal: Low back pain, right leg pain Psychiatric: normal mood/ affect Neurological: [denies new onset weakness in extremities], [denies new onset balance issues] Objective:: Physical Exam General: Alert and oriented x3, no acute distress, pleasant and cooperative, [on room air] Lungs: Resps E/U, Symmetrical chest expansion, Eyes: PERRL Musculoskeletal: Flexion and extension of lumbar spine somewhat guarded secondary to pain, deep tendon reflexes normal, strength in upper and lower extremities [5/5], [abnormal gait noted] Neurological: speech clear, denture processor equal, no gross sensory deficits Assessment:: CRPS type I right lower extremity and degenerative disc disease lumbar spine with lumbar radiculopathy Plan:: We will refill her [place] 10 mg 1 tab p.o. 3 times daily give her 2 months with medication we will follow-up with her in 3 months she can worm picker 1 month and then return. She is been instructed to call the office if she has any issues prior to her next appointment. Patient has been prescribed a controlled substance after being counseled on the medication, medication safety, and possible side effects. MO report has been obtained and reviewed prior to prescription and found to be appropriate. Opioid contract was reviewed and signed by the patient, and that they have agreed to all of the terms set forth by our compliance program. Dr. Rae has reviewed this note and agrees with this plan of care. This note was dictated using voice recognition software and may contain errors or omissions [facility] History I have reviewed the patient's past medical history: Yes Medical History: Reports:: Hypertension Denies:: Cancer, Diabetes Mellitus Type 1, Diabetes Mellitus Type 2, Internal Pacemaker, MRSA, Seizures *Have you ever received a pneumonia vaccine?: Yes *Have you received a flu vaccine this season?: Yes Other Medical History: Reports: Other (osteomyelitis). Denies: Blood Transfusion Reaction Other Surgeries: Yes: , Other. No: Pacemaker Amputation: Yes Fractures: No - *Social History Smoking Status: Current every day smoker Tobacco Type: cigarettes Alcohol Intake: never Alcohol Intake Frequency:: holidays/special occasions only Substance Use Type: denies use *Occupational Status:: other Housing: house Household Members: spouse *Travel in the last 8 weeks: None Family Hx:: Cancer, Diabetes
== END ==
PROVIDERS: PCP Family Medicine; Visit Provider Clinical Nurse Specialist Family Health
DX: G90.521 Complex regional pain syndrome I of right lower limb (principal); M51.16 Intervertebral disc disorders with radiculopathy, lumbar region
CPT/HCPCS: 99212

== ENCOUNTER → 2020-01-15 11:03 | Outpatient (POV) | payer MEDICARE, SELFPAY ==
[2020-01-15 11:15] VITALS: BP 160/79; PULSE 70; RESP 19; TEMP 36.4; O2SAT 97; BMI 16.6
--- NOTE | 2020-01-15 11:42 | HMH.PAINSOAP ---
[facility] Pain Management SOAP Note Subjective:: Patient is a pleasant 49-year-old white female who is today for medication refills. She is being treated for CRPS type one of her right lower extremity. She is also being treated for degenerative disc disease lumbar spine lumbar radiculopathy. She rates her pain today a 5 out of 10. She is currently managed on [place] 10 mg 1 p.o. 3 times daily. Drug screens have been appropriate her morphine equivalent is 30. Mo #[id number] reviewed and appropriate. Her drug screens have been appropriate. She will have a drug screen today. ROS General: no recent weight change, no fever, no sleep disturbances Respiratory: no cough, no shortness of air, no recurring pulmonary infections Cardiovascular/Peripheral Vascular: No chest pain, No palpitations, no edema, no shortness of breath. Gastrointestinal: no new onset incontinence, normal bowel movements reported Genitourinary: no new onset incontinence Musculoskeletal: Neck pain, back pain, leg pain, foot pain Psychiatric: normal mood/ affect Neurological: [denies new onset weakness in extremities], [denies new onset balance issues] Objective:: Physical Exam General: Alert and oriented x3, no acute distress, pleasant and cooperative, [on room air] Lungs: Resps E/U, Symmetrical chest expansion, Eyes: PERRL Musculoskeletal: Flexion and extension of lumbar spine somewhat guarded secondary to pain, deep tendon reflexes normal, strength in upper and lower extremities [5/5], [abnormal gait noted] Neurological: speech clear, lpn or medical assistant equal, no gross sensory deficits Assessment:: Degenerative disc disease lumbar spine lumbar radiculopathy, CRPS type I right lower extremity Plan:: We will continue her [place] 10 mg 1 p.o. 3 times daily and give her 2 months worth of medication. Patient's been instructed to call the office if she has any issues prior to her next appointment we will see her back in 3 months she can orange picking supervisor 1 prescription in the interim. Patient I also discussed adding low back to her regimen she is in agreements. I will send this into her pharmacy. Patient has been prescribed a controlled substance after being counseled on the medication, medication safety, and possible side effects. MO report has been obtained and reviewed prior to prescription and found to be appropriate. Opioid contract was reviewed and signed by the patient, and that they have agreed to all of the terms set forth by our compliance program. Dr. Rae has reviewed this note and agrees with this plan of care. This note was dictated using voice recognition software and may contain errors or omissions [facility] History I have reviewed the patient's past medical history: Yes Medical History: Reports:: Hypertension Denies:: Cancer, Diabetes Mellitus Type 1, Diabetes Mellitus Type 2, Internal Pacemaker, MRSA, Seizures *Have you ever received a pneumonia vaccine?: No *Have you received a flu vaccine this season?: No Other Medical History: Reports: Other (osteomyelitis). Denies: Blood Transfusion Reaction Other Surgeries: Yes: , Other. No: Pacemaker Amputation: Yes Fractures: No - *Social History Smoking Status: Current every day smoker Tobacco Type: cigarettes Alcohol Intake: never Alcohol Intake Frequency:: holidays/special occasions only Substance Use Type: denies use *Occupational Status:: unemployed Housing: house Household Members: spouse *Travel in the last 8 weeks: None Family Hx:: Cancer, Diabetes
== END ==
PROVIDERS: Visit Provider Clinical Nurse Specialist Family Health
DX: M51.16 Intervertebral disc disorders with radiculopathy, lumbar region (principal); G90.521 Complex regional pain syndrome I of right lower limb
CPT/HCPCS: 99212

== ENCOUNTER → 2020-06-06 12:04 | Outpatient (CLI) | payer MEDICARE, MEDICAID, SELFPAY ==
--- NOTE | 2020-06-06 12:10 | XR_ITS ---
PROCEDURE: XR SHOULDER LT MIN 2V CLINICAL INDICATION: grashy, axillary, supraspinatus COMPARISON: No exams were available for comparison FINDINGS: No fracture or dislocation. No lytic or blastic change. There is normal mineralization. The joint spaces are well-preserved. No significant degenerative/arthritic changes. No erosive changes evident. Other findings:None. IMPRESSION: No acute findings. Dictated by: Pricila Mora 06/06/2020 17:01 Pricila Mora in OV 06/06/2020 17:01
== END ==
PROVIDERS: PCP Family Medicine; Visit Provider Orthopaedic Surgery
DX: M25.512 Pain in left shoulder (principal)
CPT/HCPCS: 73030

== ENCOUNTER → 2021-04-07 10:45 | Outpatient (CLI) | payer MEDICARE, MEDICAID, SELFPAY ==
--- NOTE | 2021-04-07 10:50 | XR_ITS ---
FINAL REPORT CLINICAL HISTORY: pain COMPARISON: October 25, 2018 FINDINGS: RIGHT FOOT Three views of the right foot demonstrate postoperative changes from amputation at the level of the proximal midfoot. There are postoperative changes in the distal tibia and fibula. The bones are osteopenic. There are severe degenerative changes of the tibiotalar joint. There is a soft tissue calcification in the distal aspect of the soft tissue stump measuring 15 mm. IMPRESSION: Postoperative and degenerative changes as described. Soft tissue calcification in the soft tissue stump measuring 15 mm. Reviewed, Interpreted and Dictated by Major Rodriguez III, MD Transcribed by Randa Briscoe Authenticated by Major Rodriguez III, MD on 04/07/2021 01:09:22 PM [facility]
--- NOTE | 2021-04-07 10:50 | XR_ITS ---
FINAL REPORT CLINICAL HISTORY: pain COMPARISON: October 25, 2018 FINDINGS: RIGHT ANKLE: Three views of the right ankle were obtained. There are postoperative changes of the distal tibia and fibula and the mid tibia. There are severe degenerative changes of the ankle. There are postoperative changes from amputation at the proximal midfoot. There is diffuse soft tissue swelling. There is no definite acute bony abnormality. IMPRESSION: Postoperative and degenerative changes as described. Diffuse soft tissue swelling with no definite acute bony abnormality. Reviewed, Interpreted and Dictated by Major Rodriguez III, MD Transcribed by Randa Briscoe Authenticated by Major Rodriguez III, MD on 04/07/2021 01:09:05 PM [facility]
[2021-04-07 12:43] LABS: Basophils # 0.1 K/mm3 (0-0.2); Basophils % 1.2 % (0.1-2.0); Eosinophils # 0.2 K/mm3 (0.0-0.4); Eosinophils % 2.5 % (0.1-12.0); Hematocrit 37.8 % (37.0-47.0); Hemoglobin 12.2 g/dL (12.2-16.2); Lymphocytes # 1.4 K/mm3 (0.7-4.5); Lymphocytes % 19.1 % (10-50); Mean Corpuscular HGB Conc 32.4 g/dL (31.8-35.4); Mean Corpuscular Hemoglobin 29.9 pg (27.0-31.2); Mean Corpuscular Volume 92.3 fl (81-99); Mean Platelet Volume 7.7 fl (7.4-10.4); Monocytes # 0.3 K/mm3 (0.1-1.0); Monocytes % 4.8 % (1.7-9.3); Neutrophils # 5.2 K/mm3 (1.8-7.8); Neutrophils % 72.4 % (37.0-80.0); Platelet Count 389 K/mm3 (142-424); Red Blood Count 4.09 M/mm3 (4.20-5.40); Red Cell Distribution Width 14.9 % (11.5-17.5); White Blood Count 7.1 K/mm3 (4.8-10.8)
[2021-04-07 13:54] LABS: Erythrocyte Sedimentation Rate 59 mm/hr (0-20)
[2021-04-07 15:26] LABS: Alanine Aminotransferase 20 U/L (12-78); Albumin Level 4.5 g/dl (3.5-5.0); Albumin/Globulin Ratio 1.3 (1.1-1.8); Alkaline Phosphatase 127 U/L (38-126); Anion Gap 12.9 mEq/L (5-15); Aspartate Amino Transferase 34 U/L (14-36); Bilirubin,Total 0.5 mg/dl (0.2-1.3); Blood Urea Nitrogen 12 mg/dl (7-17); Calcium 9.5 mg/dl (8.4-10.2); Carbon Dioxide 27 mmol/L (22.0-30.0); Chloride 105 mmol/L (98-107); Estimated Glomerular Filt Rate 59 ml/min (>60); GFR (African American) 71 ML/MIN (>60); Globulin 3.6 g/dL (1.3-3.2); Glucose 92 mg/dl (74-100); Potassium 4.9 mmoL/L (3.5-5.1); Sodium 140 mmol/L (136-145); Total Protein,Serum 8.1 g/dl (6.3-8.2)
[2021-04-07 15:33] LABS: C-Reactive Protein 43.9 mg/L (0-4)
== END ==
PROVIDERS: Visit Provider Podiatrist
DX: L03.90 Cellulitis, unspecified; M79.671 Pain in right foot
CPT/HCPCS: 36415; 73610; 73630; 80053; 85025; 85651; 86140

== ENCOUNTER → 2021-12-12 09:48 | Outpatient (CLI) | payer MEDICARE, MEDICAID, SELFPAY ==
--- NOTE | 2021-12-12 09:55 | XR_ITS ---
FINAL REPORT CLINICAL HISTORY: rt ankle pain COMPARISON: April 07, 2021 FINDINGS: RIGHT ANKLE: Three views of the right ankle were obtained. The bones are osteopenic. There are severe degenerative changes. There are postoperative changes of the tibia. An orthopedic screw is seen through the distal tibia and fibula. IMPRESSION: Postoperative and degenerative changes. Reviewed, Interpreted and Dictated by Major Rodriguez III, MD Transcribed by Colin Gonzalez Authenticated and [facility]
--- NOTE | 2021-12-12 09:55 | XR_ITS ---
FINAL REPORT CLINICAL HISTORY: rt foot pain COMPARISON: April 07, 2021 FINDINGS: 3 views of the right foot were obtained. 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 There is a presumed great toe a remnant within ossification or bone within it. There is a presumed soft tissue defect of the plantar foot remnant. There is bony resorption versus erosion of what appears to be the distal talus. IMPRESSION: Postoperative change from amputation. Bony resorption versus erosion of the presumed distal talus. Reviewed, Interpreted and Dictated by Major Rodriguez III, MD Transcribed by Colin Gonzalez Authenticated and [facility]
== END ==
PROVIDERS: PCP Family Medicine; Visit Provider Orthopaedic Surgery
DX: M79.671 Pain in right foot; M25.571 Pain in right ankle and joints of right foot
CPT/HCPCS: 73610; 73630